=== PATIENT | female | born 1960 | race Caucasian/White ===

== ENCOUNTER 2021-01-06 14:24 | Emergency (ER) | payer OTHER ==
[2021-01-06 15:21] LABS: BASOPHIL 0.9 % (0-2); EOSINOPHIL 3.4 % (0-5); HCT 44.4 % (37.0-47.0); HGB 15.1 g/dl (12.5-16.0); LYMPHOCYTE 26.3 % (15-48); MCV 88.3 fL (78.0-100.0); MPV 9.6 fL (6.0-9.5); NEUTROPHIL 60.2 % (41-80); NRBC 0; PLT 232 K/uL (150-400); RBC 5.03 M/uL (4.20-5.40); WBC 6.5 K/uL (4.0-10.5)
[2021-01-06 15:29] LABS: BILIRUBIN NEGATIVE (NEGATIVE); BLOOD NEGATIVE Ery/uL (NEGATIVE); CLARITY CLEAR (CLEAR); COLOR YELLOW (YELLOW); GLUCOSE (U) NORMAL (NORMAL); LEUKOCYTES NEGATIVE Leu/uL (NEGATIVE); NITRITE NEGATIVE (NEGATIVE); PROTEIN NEGATIVE (NEGATIVE); SPECIFIC GRAVITY 1.015 (1.001-1.030); UROBILINOGEN 0.2 mg/dL (0.2-1.0)
[2021-01-06 15:30] LABS: INR 1.04 (0.9-1.2); PTT 27.7 SECONDS (24.4-34.7)
[2021-01-06 15:47] LABS: BILIRUBIN - TOTAL 0.3 mg/dL (0.2-1.0); BUN/CREAT RATIO (CALC) 20.9 RATIO; CREATININE 0.86 mg/dL (0.51-0.95); GLOBULIN (CALCULATION) 3.3 g/dL; TOTAL PROTEIN 7.3 g/dL (6.4-8.2)
== END 2021-01-06 17:08 | disposition home or self-care (01) ==
LOC: FER 14:24
PROVIDERS: Emergency Medicine
DX: G45.9 Transient cerebral ischemic attack, unspecified (principal); R29.700 NIHSS score 0; K21.9 Gastro-esophageal reflux disease without esophagitis; E03.9 Hypothyroidism, unspecified; Z88.8 Allergy status to other drugs, medicaments and biological substances; Z79.899 Other long term (current) drug therapy
CPT/HCPCS: 36415; 70450; 71045; 80053; 81003; 84443; 84484; 85025; 85610; 85730; 93005; Q9967